=== PATIENT | female | born 1960 | race Caucasian/White ===

== ENCOUNTER 2016-12-06 12:32 | Day surgery (SDC) | payer OTHER ==
[~2016-12-06] VITALS: Ht 157.5 cm; Wt 63.0 kg
[~2016-12-06 12:32] MED LIST: OMEP40CA6 PO; RANI75TA13 PO
[2016-12-06 13:33] VITALS: BP 101/59; PULSE 62; RESP 11
[2016-12-06 13:37] VITALS: Ht 157.5 cm; Wt 63.0 kg
[2016-12-06] MEDS ORDERED: LIDOCAINE 2% (SDV) 5 ML INJ ONE (13:51)
[2016-12-06] MEDS ORDERED: PROPOFOL 60 ML ONE (13:51)
[2016-12-06] MEDS ORDERED: TYLENOL PO (13:56)
--- NOTE | 2016-12-06 14:30 | OPPN ---
Date/Time of Note Date/Time of Note DATE: 12/06/16 TIME: 14:26 Proc Note GI Procedure Date 12/06/16 Pre-procedure Diagnosis * Colorectal cancer screening Post-procedure Diagnosis Impression: * Diverticulosis left side of the colon * 4 mm sessile polyp proximal ascending colon. Ablated * Moderate-sized internal hemorrhoids * Otherwise normal colonoscopy to cecum Plan: Follow up as scheduled] High fiber diet Annual hemoccult stool testing [Review pathology] [Surveillance colonoscopy in 5 years] . Procedure Performed: Colonoscopy (Plus ablation) Surgeon EAMON COOK MD [employer] none Anesthesia Type: MAC Anesthesiologist: LAST EDMONDSON MD Tourniquet Time none EBL none Transfusion required none Biopsy 1: On Polyp 1: Proximal ascending colon polyp Grafts/Implants none Tubes/Drains none Complication(s) none Pt Condition post procedure: stable Disposition: home Indications: screening/surveillance Procedure Description Procedure Date: [] After informed consent, with the patient/relatives understanding the procedure, its indications and potential risks and complications, including but not limited to: Allergic reaction, bleeding, perforation, infection, and after all pertinent questions were answered to the patient's satisfaction, the patient/ relatives signed the witnessed informed consent. Following this, premedication was administered slowly IV push under careful cardiovascular and respiratory monitoring with pulse OXIMETRY, automatic blood pressure, and monitor technician. Once the sedative effect was achieved, the patient was placed in the left lateral decubitus position, digital rectal examination was performed. The colonoscope was then introduced and advanced under visual control throughout all segments of the colon including: the rectum, sigmoid, descending colon, splenic flexure, transverse colon, hepatic flexure, ascending colon and finally reaching the cecum which was clearly identified by transillumination, finger indentation and the ileocecal valve. Careful examination of the mucosa of the lower gastrointestinal tract both on insertion as well as withdrawal of the instrument disclosed the following findings: PREPARATION QUALITY: [Adequate], RECTAL EXAM: The anorectal area was visualized examined and digital rectal examination performed with the following findings: No evidence of perirectal disease, no masses. COLONIC MUCOSA: The mucosa of all segments of the colon was carefully examined and showed the following findings: There is moderate diverticulosis left side of the colon. A 4 mm polyp is noted in the proximal ascending colon. It was ablated with biopsy forceps. Moderate- sized internal hemorrhoids are present. Otherwise the examined mucosa appears within normal limits. There is no evidence of inflammatory changes, other neoplasms, vascular malformation, or any other abnormality. The instrument was then withdrawn, the patient tolerated the procedure well and was transferred out of the Endoscopy Suite awake and in good condition to continue recovery under observation. Copies To: CC: EAMON COOK MD, MORDO MD Dec 06, 2016 14:30
--- NOTE | 2016-12-06 14:34 | OPPN ---
Date/Time of Note Date/Time of Note DATE: 12/06/16 TIME: 14:30 Proc Note GI Procedure Date 12/06/16 Pre-procedure Diagnosis * Dyspepsia Post-procedure Diagnosis Impression: * Moderate distal esophagitis. Rule out Mccallum's esophagus. Biopsies obtained * Moderate gastritis. Rule out H. pylori infection. Biopsies obtained * Otherwise normal EGD Plan: * Continue present regimen with PPI therapy * Review pathology as soon as available * Follow-up as previously scheduled . Procedure Performed: Endoscopy (Plus biopsies) Surgeon EAMON COOK MD Insulation Extruder Operator none Anesthesia Type: MAC Anesthesiologist: LAST EDMONDSON MD Tourniquet Time none EBL none Transfusion required none Biopsy 1: Gastric body and antrum/rule out H. pylori infection Biopsy 2: Distal esophagus/rule out Mccallum's esophagus Grafts/Implants none Tubes/Drains none Complication(s) none Pt Condition post procedure: stable Disposition: home Indications: other (Dyspepsia) Procedure Description After informed consent, with the patient/relatives understanding the procedure, its indications, potential risks and complications, including but not limited to : allergic reaction, bleeding, perforation or infection, and after all pertinent questions were answered to the patients satisfaction, the patient/ relatives signed witnessed informed consent. Following this, premedication was administered slowly IV push under careful cardiovascular and respiratory monitoring with pulse oximetry, automatic blood pressure, and threat monitoring analyst. Once the sedative effect was achieved the patient was place in the left lateral decubitus, the panendoscope was introduced and advanced under visual control. Careful examination of the upper gastrointestinal tract, both on insertion as well as withdrawal of the instrument disclosing the following findings: ESOPHAGUS: the mucosa of the entire esophagus was carefully examined and showed the following findings: There is moderate erythema and edema of the mucosa at the esophagogastric junction. Biopsies were obtained to rule out Mccallum's esophagus. Otherwise the mucosa appears within normal limits. There is no evidence of varices, neoplasm, or stricture. No Hiatal Hernia identified. STOMACH: Upon entrance to the stomach air was insufflated, the gastric zaragoza distended normally. The mucosa of the fundus, body and antrum of the stomach was carefully examined both head-on and on retroflexion, and showed the following findings: There is moderate erythema and edema of the mucosa of the entire stomach. Biopsies were obtained to rule out H. pylori infection. Otherwise the mucosa appears within normal limits with no abnormalities. There is no evidence of ulcers or neoplasm. PYLORUS: The pylorus was carefully examined and showed the following findings: the pylorus appears patent and within normal limits, with no evidence of gastric outlet obstruction. DUODENUM: The duodenal mucosa was carefully examined in the duodenal bulb as well as the second portion of the duodenum and showed the following findings: the mucosa appears unremarkable with no evidence of duodenitis, ulcer or neoplasm. Copies To: CC: EAMON COOK MD, MORDO MD Dec 06, 2016 14:34
[2016-12-06 14:57] VITALS: BP 167/76; PULSE 58; RESP 14
[2016-12-06 15:09] VITALS: BP 116/77
== END 2016-12-06 16:07 | disposition home or self-care (01) ==
LOC: GIL 12:32
PROVIDERS: ATTEND Internal Medicine Gastroenterology
DX: K20.8 Other esophagitis (principal); K29.70 Gastritis, unspecified, without bleeding; E78.5 Hyperlipidemia, unspecified; K21.9 Gastro-esophageal reflux disease without esophagitis; I10 Essential (primary) hypertension
CPT/HCPCS: 43239; 88305; 88312; 88313; Z7610

== ENCOUNTER → 2018-09-27 | Outpatient (CLI) | payer OTHER ==
[~2018-09-27] MED LIST changes: +IOHEXOL 300MG/ML 150 ML BTL ONE; +TYLENOL PO
== END | disposition home or self-care (01) ==
LOC: RAD 08:41
PROVIDERS: ATTEND Physician Assistant
DX: K62.89 Other specified diseases of anus and rectum (principal)
CPT/HCPCS: 74270; Q9967